=== PATIENT | female | born 1975 | race Caucasian/White ===

== ENCOUNTER → 2020-06-13 07:04 | Outpatient (CLI) | payer OTHER, SELFPAY ==
--- NOTE | 2020-06-13 | DI.US.S_ITS ---
PROCEDURE: US PELVIC COMPLETE INDICATIONS: OVARIAN DYSFUNCTION TECHNIQUE: Real-time scanning was performed of the pelvic organs, with image documentation. Additional endovaginal scanning was necessary due to incomplete visualization of the adnexal and endometrial structures by transabdominal scanning. COMPARISON: None. FINDINGS: Transabdominal scanning: Limited scanning through the kidneys shows no hydronephrosis. No pathologic free abdominal or pelvic fluid. Endovaginal scanning: Uterus: Uterus is normal in size at 10.9 x 6.3 x 7.4 cm. The endometrium measures 5.9 mm in combined thickness. 2 intramural fibroids, largest measuring up to 3.9 cm. Ovaries: Enlarged ovaries bilaterally each containing a complex, predominantly cystic mass with fine low level internal echoes measuring 4.9 x 3.9 x 3.9 cm on the right and 4.1 x 4.3 x 5.0 cm on the left. Doppler assessment demonstrates no internal flow. IMPRESSION: 1. Bilateral complex ovarian masses with sonographic appearance suggestive of bilateral endometrioma versus hemorrhagic ovarian cyst. Underlying neoplasm considered less likely. Recommend short-term follow-up pelvic ultrasound in 6-12 weeks to assess for interval resolution. 2. Fibroids, largest measuring up to 3.9 cm. Dictated by: Kentrell RESENDEZ Interpreted: Marilyn Gupta MD on 06/13/2020 at 11:39 Approved by: Marilyn Gupta M.D. on 06/13/2020 at 12:04
[2020-06-13 08:00] LABS: Add Manual Diff / Slide Review NO; Basophils Absolute Auto 100 /uL (0-100); Basophils Percent Auto 1.1 % (0-2); Eosinophils Absolute Auto 100 /uL (0-450); Hematocrit 29.5 % (36-46); Hemoglobin 9.4 g/dL (12.0-16.0); Lymphocytes Absolute Auto 1800 /uL (1100-4500); Lymphocytes Percent Auto 25.4 % (25-40); Mean Corpuscular Hemoglobin 23.2 PG (26-34); Mean Corpuscular Volume 72.7 fL (80-100); Monocytes Absolute Auto 500 /uL (0-900); Monocytes Percent Auto 7.8 % (3-14); Neutrophils Absolute Auto 4500 /uL (1500-7000); Neutrophils Percent Auto 64.7 % (50-75); Platelet Count 363 X10^3/uL (150-400); Red Blood Cell Count 4.06 X10^6/uL (4.0-5.2); Red Cell Distribution Width 19.4 % (11.6-14.8); White Blood Cell Count 6.9 X10^3/uL (4.5-11.0)
[2020-06-13 08:08] LABS: Hemoglobin A1C% w Est Avg Glu 5.5 % (4.0-6.0)
[2020-06-13 08:12] LABS: Alanine Aminotransferase 11 IU/L (<35); Albumin 4.4 g/dL (3.5-5.0); Albumin Globulin Ratio 1.4 (1.0-2.8); Alkaline Phosphatase 61 U/L (38-126); Aspartate Aminotransferase 21 IU/L (14-36); BUN Creatinine Ratio 17.5 (6-22); Bilirubin Total 0.3 mg/dL (0.2-1.3); Blood Urea Nitrogen 10 mg/dL (7-17); Calcium 9.5 mg/dL (8.4-10.2); Carbon Dioxide 27 mmol/L (22-32); Chloride 107 mmol/L (98-107); Cholesterol 211 mg/dL (140-199); Estimated Glomerular Filt Rate > 60.0 mL/min (>60); Globulin 3.2 g/dL (1.7-4.1); Glucose 104 mg/dL (70-100); HDL Cholesterol 77 mg/dL (40-60); HEMOLYSIS < 15 (0-50); LDL Cholesterol Calculated 117 mg/dL (<100); Potassium 4.6 mmol/L (3.4-5.1); Sodium 139 mmol/L (137-145); Total Protein 7.6 g/dL (6.3-8.2); Triglycerides 84 mg/dL (35-150)
[2020-06-13 08:28] LABS: HCG Quantitative /Beta subunit < 2.4 mIU/mL; Prolactin 12.9 ng/mL (3.0-18.6)
[2020-06-13 08:30] LABS: Luteinizing Hormone 6.73 mIU/mL; Progesterone, Total 0.46 ng/mL; Vitamin D 25 Hydroxy (D3) 28.9 ng/mL (30.0-100.0)
[2020-06-13 08:43] LABS: Thyroid Stimulating Hormone 5.85 uIU/mL (0.47-4.68)
[2020-06-13 08:45] LABS: Estradiol, Total 32.6 pg/mL; Testosterone 9.89 ng/dL (5.71-77.0)
[2020-06-13 10:42] LABS: Hepatitis B Surface Antigen NEGATIVE s/c (NEGATIVE); Rubella Antibody IgG 46.6 IU/mL (>15)
[2020-06-13 10:59] LABS: HIV 1 & 2 Ab/Ag 4th Gen Combo NEGATIVE (NEGATIVE); Hep C Virus Ab w/Reflex Quant NEGATIVE s/c (NEGATIVE)
[2020-06-14 06:07] LABS: RPR Screen Non Reactive (Non Reactive)
[2020-06-15 07:14] LABS: Insulin Level Total 8.7 uIU/mL (2.6-24.9)
[2020-06-19 16:40] LABS: Anti Mullerian Hormone 0.677 ng/mL (.)
== END ==
PROVIDERS: Referring Provider Obstetrics & Gynecology Reproductive Endocrinology; Visit Provider Obstetrics & Gynecology Reproductive Endocrinology
DX: E28.9 Ovarian dysfunction, unspecified (principal); N83.9 Noninflammatory disorder of ovary, fallopian tube and broad ligament, unspecified; D25.1 Intramural leiomyoma of uterus
CPT/HCPCS: 36415; 76830; 76856; 80053; 80061; 82306; 82397; 82627; 82670; 83001; 83002; 83036; 83498; 83525; 84144; 84146; 84403; 84443; 84702; 85025; 86592; 86762; 86803; 86850; 86900; 86901; 87340; 87389

== ENCOUNTER → 2020-06-24 08:57 | Outpatient (CLI) | payer OTHER, SELFPAY ==
--- NOTE | 2020-06-24 | DI.US.S_ITS ---
PROCEDURE: US PELVIC COMPLETE INDICATIONS: Ovarian dysfunction,unspecified TECHNIQUE: Real-time scanning was performed of the pelvic organs, with image documentation. Additional endovaginal scanning was necessary due to incomplete visualization of the adnexal and endometrial structures by transabdominal scanning. COMPARISON: [facility], , US PELVIC COMPLETE, 06/13/2020, 8:08. FINDINGS: Transabdominal scanning: Limited scanning through the kidneys shows no hydronephrosis. No pathologic free abdominal or pelvic fluid. Endovaginal scanning: Uterus: Uterus is normal in size at 11 x 2 x 6.4 x 8.9 cm. The endometrium measures up to 14 mm in combined thickness. There is abnormal fluid seen along the endometrial stripe. Hypoechoic uterine lesions are seen, which are attributed to fibroids. They measure as follows: Left anterior uterus, subserosal, 4.3 x 5 x 4 cm Right anterior uterus, intramural, 4.5 x 4.9 x 4.3 cm Ovaries: The right ovary measures 6.2 x 4.6 x 5.4 cm and 5.6 x 4 x 4.3 cm, which previously measured 4.7 x 3.7 x 3.9 cm. The left ovary measures 6.7 x 3.4 x 5.2 cm and demonstrates a complex cyst that measures 6.1 x 4 x 4.5 cm, which previously measured 4.1 x 4.3 x 5 cm. IMPRESSION: Bilateral complex ovarian cysts are seen, which are larger on the current study than on the recent prior. At clinical discretion, a followup pelvic ultrasound could be considered in 6 weeks to assure resolution/ improvement. Fluid is seen along the endometrial stripe. Uterine fibroids are again seen. Dictated by: Mani Man M.D. on 06/25/2020 at 10:26 Approved by: Mani Man M.D. on 06/25/2020 at 10:30
[2020-06-24 10:13] LABS: Luteinizing Hormone 9.19 mIU/mL; Progesterone, Total 0.71 ng/mL
[2020-06-24 10:27] LABS: Thyroid Stimulating Hormone 4.29 uIU/mL (0.47-4.68)
[2020-06-24 10:28] LABS: Estradiol, Total 450.2 pg/mL
== END ==
PROVIDERS: Referring Provider Obstetrics & Gynecology Reproductive Endocrinology
DX: E28.9 Ovarian dysfunction, unspecified (principal); N83.292 Other ovarian cyst, left side; N83.291 Other ovarian cyst, right side; D25.1 Intramural leiomyoma of uterus; D25.2 Subserosal leiomyoma of uterus
CPT/HCPCS: 36415; 76830; 76856; 82670; 83002; 84144; 84443

== ENCOUNTER → 2021-04-11 10:37 | Outpatient (CLI) | payer OTHER, SELFPAY | PROVIDERS: Referring Provider Internal Medicine; Visit Provider Internal Medicine | DX: Z23 Encounter for immunization (principal) | CPT/HCPCS: 90471; 90686 ==

== ENCOUNTER → 2021-04-25 12:57 | Outpatient (CLI) | payer OTHER, SELFPAY ==
[2021-04-25] MEDS: COVID-19 VACC #3, MRNA(MOD) 50 MCG/0.25 ML VIAL IM (13:01)
== END ==
PROVIDERS: Visit Provider Internal Medicine
DX: Z23 Encounter for immunization (principal)
CPT/HCPCS: 0013A; 91301